=== PATIENT | male | born 1945 | race Caucasian/White ===

== ENCOUNTER 2017-08-13 05:32 | Observation (INO) | payer MEDICARE ==
[2017-08-11 12:32] LABS: BASOPHILS % 0.4 % (0.0-1.0); EOSINOPHILS # (AUTO) 0.2 (0.0-0.4); EOSINOPHILS % 2.1 % (0.0-6.0); HEMATOCRIT 46.8 % (38.2-49.6); HEMOGLOBIN 15.7 g/dL (14.0-18.0); LYMPHOCYTES % 12.1 % (18.0-39.1); MEAN CORPUSCULAR HEMOGLOBIN 29.3 pg (28-32); MEAN CORPUSCULAR HGB CONC 33.5 g/dL (31-35); MEAN CORPUSCULAR VOLUME 87.3 fL (81-99); MONOCYTES # (AUTO) 0.4 (0.2-0.8); MONOCYTES % 5.5 % (4.4-11.3); NEUTROPHILS # (AUTO) 6.3 (2.1-6.9); NEUTROPHILS % 79.6 % (38.7-80.0); PLATELET COUNT 185 x10e3/uL (140-360); RED BLOOD COUNT 5.36 x10e6/uL (4.3-5.7); RED CELL DISTRIBUTION WIDTH 13.6 % (11.7-14.4)
[2017-08-11 12:44] LABS: INR 1.06; PARTIAL THROMBOPLASTIN TIME 27.4 seconds (23.8-35.5)
[2017-08-11 12:50] LABS: ANION GAP 12.3 mmol/L (8-16); BLOOD UREA NITROGEN 20 mg/dL (7-26); BUN/CREATININE RATIO 20 (6-25); CALCIUM 9.4 mg/dL (8.4-10.2); CARBON DIOXIDE 28 mmol/L (22-29); CHLORIDE 102 mmol/L (98-107); CREATININE, SERUM 0.98 mg/dL (0.72-1.25); EST GLOMERULAR FILTRATION RATE > 60 ML/MIN (60-); GLUCOSE 124 mg/dL (74-118); POTASSIUM 4.3 mmol/L (3.5-5.1); SODIUM 138 mmol/L (136-145)
--- NOTE | 2017-08-11 15:13 | Diagnostic Imaging Report ---
PROCEDURE: X-RAY CHEST, TWO VIEWS COMPARISON: None. INDICATIONS: PRE-OPERATIVE CHEST X-RAY FOR LUMBAR SPINE SURGERY. FINDINGS: LUNGS: No consolidations or edema. PLEURA: No effusions or pneumothorax. HEART \T\ MEDIASTINUM: The heart is within normal size-limits. BONES \T\ SOFT TISSUES: No acute findings. Surgical clips project over the upper abdomen compatible with prior cholecystectomy. Degenerative disc changes of the thoracic spine. CONCLUSION: No acute thoracic abnormality. Dictated by: Humberto Mcintyre M.D. on 08/11/2017 at 13:59 Electronically approved by: Humberto Mcintyre M.D. on 08/11/2017 at 13:59
[~2017-08-13] VITALS: Ht 182.9 cm; Wt 127.0 kg
[~2017-08-13 05:32] MED LIST: ASPIR 8181 MG PO; B COMPLEX1 EACH PO; CELEBREX100 MG PO; COQ-10 PO; FOCUS FACTOR PO; KLOR-CON M2020 MEQ PO; L-ARGININE1000 MG PO; LASIX20 MG PO; LISINOPRIL10 MG PO; MEGA MULTIVIT1 EAC1 PO; OMEGA-3 PO; PANTOPRAZOLE SO40 MG PO; PENTOXIFYLLINE400 MG PO; PRAVASTATIN SOD20 MG PO; PROSTA-METTO PO; RESVERATROL PO; TURMERIC PO; TYLENOL325 MG PO; ULTRAM 50MG50 MG PO; VITAMIN D31000 UNI1 PO; VITAMIN E400 UNI1 PO
[2017-08-13] MEDS ORDERED: THROMBIN FOR SOLN 5,000 UNIT VIAL ONE (06:47)
[2017-08-13] MEDS ORDERED: BUPIVACAINE 0.5%/EPI 30 ML SDV INJ ONE (06:47)
[2017-08-13] MEDS ORDERED: GELATIN SPONGE 12-7MM ONE ×2 (06:48→07:59)
[2017-08-13] MEDS ORDERED: BACITRACIN 50,000 UNIT VIAL ONE (06:48)
[2017-08-13] MEDS ORDERED: LIDOCAINE HCL (LTA) 4 ML SOLN ONE (07:05)
[2017-08-13] MEDS ORDERED: ACETAMINOPHEN 1000 MG/100 ML 100 ML IV ONE (07:05)
[2017-08-13] MEDS ORDERED: CEFAZOLIN SOD 2 GM/D5W 50ML 50 ML IV ONE (07:36)
[2017-08-13] MEDS: LACTATED RINGER'S 1,000 ML IV SCH ×2 (09:50→18:10)
[2017-08-13] MEDS ORDERED: HYDROMORPHONE 2MG/ML INJ IV PRN (10:00)
[2017-08-13] MEDS ORDERED: PROMETHAZINE HCL (IM) 25 MG/ML VIAL IM PRN (10:00)
[2017-08-13] MEDS ORDERED: CARISOPRODOL 350 MG TAB PO PRN (10:00)
[2017-08-13] MEDS ORDERED: ONDANSETRON HCL INJ 2 MG/ML VIAL IV PRN (10:00)
[2017-08-13] MEDS ORDERED: ACETAMINOPHEN 325 MG TAB PO PRN (10:00)
[2017-08-13] MEDS ORDERED: MORPHINE SULFATE 5 MG/ML VIAL IM PRN (10:00)
[2017-08-13] MEDS ORDERED: CEPACOL SORE THROAT LOZENGES PO PRN (10:00)
[2017-08-13] MEDS ORDERED: OXYCODONE/ACETAMINOPHEN 5-325 1 EACH TABLET PO PRN (10:00)
[2017-08-13] MEDS ORDERED: MAGNESIUM/ALUMINUM/SIMETHICONE 30 ML UDC PO PRN (10:00)
[2017-08-13 10:30] VITALS: BP 135/68
--- NOTE | 2017-08-13 10:37 | Operative Report ---
DATE OF PROCEDURE: August 13, 2017 PREOPERATIVE DIAGNOSIS: Severe L3-L4 spinal stenosis above the level of previous L4 to S1 fusion, M48.062. POSTOPERATIVE DIAGNOSIS: Severe L3-L4 spinal stenosis above the level of previous L4 to S1 fusion, M48.062. PROCEDURES 1. L3 bilateral decompressive laminectomy and L3-L4 bilateral medial facetectomy, 28055. 2. L4 bilateral residual laminectomy, 76110. ANESTHESIA: General. INDICATIONS: The patient is a man who has previously undergone L4-L5 and L5-S1 fusion in the distant past. He now presents with severe L3-L4 spinal stenosis above the level of his previous fusion. He was taken to the operating room for decompressive laminectomy without fusion. PROCEDURE: After induction of general anesthesia, the patient was placed on the operating table in the prone position over a Jean-Pierre frame. Lumbar region was prepped and draped in a sterile fashion. A preoperative x-ray was obtained. A midline incision was created overlying his previous incision scar. The subcutaneous scar tissue and fat was divided. The lumbar fascia was divided, and dissection was carried out to expose the residual L4 and L3 lamina in this morbidly obese man. The deepest speculum retractor was deployed. An x-ray confirmed correct localization. The operating microscope was brought in. The spinous process of L3 was resected. The high-speed drill equipped with a gerald bur was used to drill the inferior half of the lamina of L3 and the residual lamina of L4, and the medial aspect of the L3-4 facet joints bilaterally. The markedly hypertrophic ligamentum flavum was resected, and the dural sac and the L4 traversing nerve roots were fully exposed and decompressed. Meticulous hemostasis was secured. The dura was covered with a layer of Gelfoam. The wound was closed in multiple layers with 0 and 2-0 Vicryl sutures. The skin was closed with anish. A dressing was applied. The patient was awakened, extubated and taken to the postanesthesia care unit in stable condition. No intraoperative complications were encountered. Estimated blood loss was 10 mL. Job#: [id number] [place]
[2017-08-13] MEDS ORDERED: HYDROMORPHONE 1MG/1ML INJ IV PRN (11:30)
[2017-08-13 11:40] VITALS: BP 135/68
[2017-08-13] MEDS ORDERED: LIDOCAINE HCL 2% LOCAL INJ 5 ML SDV VIAL INJ ONE (14:39)
[2017-08-13] MEDS ORDERED: EPHEDRINE SULFATE INJ 50 MG/10 ML SYR ONE (14:39)
[2017-08-13] MEDS ORDERED: NEOSTIGMINE 5 MG/5ML SYR ONE (14:39)
[2017-08-13] MEDS ORDERED: PROPOFOL IV EMULSION 10 MG/ML 20 ML VIAL ONE (14:39)
[2017-08-13] MEDS ORDERED: ONDANSETRON HCL INJ 2 MG/ML VIAL ONE (14:39)
[2017-08-13] MEDS ORDERED: DESFLURANE 240 ML BTL INH ONE (14:39)
[2017-08-13] MEDS ORDERED: ROCURONIUM BROMIDE 10 MG/ML 5ML VIAL ONE (14:39)
[2017-08-13] MEDS ORDERED: ACETAMINOPHEN 1000 MG/100 ML IV ONE (14:39)
[2017-08-13] MEDS ORDERED: GLYCOPYRROLATE INJ 1MG/ 5 ML SYR ONE (14:39)
[2017-08-13] MEDS ORDERED: DEXAMETHASONE SOD PHOS INJ 4 MG/ML VIAL ONE (14:39)
[2017-08-13] MEDS: CEFAZOLIN SOD 1 GM/D5W 50ML 50 ML IV SCH ×2 (14:59→21:55)
[2017-08-13 15:20] VITALS: BP 134/64
[2017-08-13 16:00] VITALS: BP 135/68
[2017-08-13] MEDS ORDERED: MIDAZOLAM HCL 2 MG/2 ML VIAL ONE (18:44)
[2017-08-13] MEDS ORDERED: FENTANYL CITRATE/PF 100MCG/2 ML INJ ONE (18:44)
[2017-08-13] MEDS: PENTOXIFYLLINE 400 MG TAB CR PO SCH (19:40)
[2017-08-13] MEDS: TRAMADOL HCL 50 MG TAB PO SCH (19:40)
[2017-08-13] MEDS: CELECOXIB 200 MG CAP PO SCH (19:40)
[2017-08-13 20:00] VITALS: BP 133/74
[2017-08-13 21:00] VITALS: BP 133/74
[2017-08-13] MEDS ORDERED: ZOLPIDEM TARTRATE 5 MG TAB PO PRN (21:00)
[2017-08-13] MEDS ORDERED: PRAVASTATIN 20 MG TAB PO SCH (21:00)
[2017-08-14 04:00] VITALS: BP 123/77
[2017-08-14] MEDS: CEFAZOLIN SOD 1 GM/D5W 50ML 50 ML IV SCH (05:21)
[2017-08-14] MEDS ORDERED: PANTOPRAZOLE SOD 40 MG TABEC PO SCH (07:30)
[2017-08-14 08:00] VITALS: BP 132/64
[2017-08-14 08:23] VITALS: BP 123/77
[2017-08-14] MEDS ORDERED: LISINOPRIL 10 MG TAB PO SCH (09:00)
[2017-08-14] MEDS ORDERED: VITAMIN E 400 UNIT CAP PO SCH (09:00)
[2017-08-14] MEDS: TRAMADOL HCL 50 MG TAB PO SCH (09:00)
[2017-08-14] MEDS ORDERED: FUROSEMIDE 20 MG TAB PO SCH (09:00)
[2017-08-14] MEDS ORDERED: POTASSIUM CHLORIDE 20 MEQ TAB CR PO SCH (09:00)
[2017-08-14] MEDS ORDERED: CHOLECALCIFEROL 1,000 UNIT TAB PO SCH (09:00)
[2017-08-14] MEDS: CELECOXIB 200 MG CAP PO SCH (09:06)
[2017-08-14] MEDS: PENTOXIFYLLINE 400 MG TAB CR PO SCH (09:07)
== END 2017-08-14 11:15 | disposition home or self-care (01) ==
LOC: OR 05:32 → PACU V 09:51 → IMCU 11:01
PROVIDERS: ADMIT Neurological Surgery; ATTEND Neurological Surgery
DX: M48.062 Spinal stenosis, lumbar region with neurogenic claudication (principal); Z98.1 Arthrodesis status; E11.9 Type 2 diabetes mellitus without complications; G47.30 Sleep apnea, unspecified; E66.01 Morbid (severe) obesity due to excess calories; Z68.39 Body mass index [BMI] 39.0-39.9, adult; I10 Essential (primary) hypertension; M19.90 Unspecified osteoarthritis, unspecified site; Z01.810 Encounter for preprocedural cardiovascular examination; Z01.812 Encounter for preprocedural laboratory examination; Z01.818 Encounter for other preprocedural examination; Z87.891 Personal history of nicotine dependence; Z79.82 Long term (current) use of aspirin; Z79.02 Long term (current) use of antithrombotics/antiplatelets; Z88.1 Allergy status to other antibiotic agents; Z88.5 Allergy status to narcotic agent; Z88.2 Allergy status to sulfonamides
CPT/HCPCS: 36415 ×2; 63047; 63048; 71046; 72020; 80048; 82948; 85025; 85610; 85730; 86850; 86900; 88304; 88311; 93005; G0378 ×2; J1100; J1170; J2001; J2250; J2405; J3490; J7120; S0164 ×2; J2270

== ENCOUNTER 2017-09-28 17:04 | Emergency (ER) | payer MEDICARE ==
[~2017-09-28] VITALS: Ht 365.8 cm; Wt 127.0 kg
[2017-09-28] MEDS ORDERED: ONDANSETRON HCL INJ 2 MG/ML VIAL IV ONE (18:03)
[2017-09-28] MEDS ORDERED: SODIUM CHLORIDE 0.9% 1000ML 1,000 ML IV STA (18:03)
[2017-09-28] MEDS ORDERED: MORPHINE SULFATE 2 MG/ML SYR IV ONE (18:15)
[2017-09-28 18:58] LABS: BASOPHILS % 0.4 % (0.0-1.0); EOSINOPHILS # (AUTO) 0.3 (0.0-0.4); EOSINOPHILS % 3.5 % (0.0-6.0); HEMATOCRIT 48.7 % (38.2-49.6); HEMOGLOBIN 15.8 g/dL (14.0-18.0); LYMPHOCYTES # (AUTO) 1.4 (1.0-3.2); LYMPHOCYTES % 17.5 % (18.0-39.1); MEAN CORPUSCULAR HEMOGLOBIN 28.5 pg (28-32); MEAN CORPUSCULAR HGB CONC 32.4 g/dL (31-35); MEAN CORPUSCULAR VOLUME 87.7 fL (81-99); MONOCYTES # (AUTO) 0.6 (0.2-0.8); MONOCYTES % 7.8 % (4.4-11.3); NEUTROPHILS # (AUTO) 5.5 (2.1-6.9); NEUTROPHILS % 70.5 % (38.7-80.0); PLATELET COUNT 231 x10e3/uL (140-360); RED BLOOD COUNT 5.55 x10e6/uL (4.3-5.7); RED CELL DISTRIBUTION WIDTH 13.7 % (11.7-14.4)
[2017-09-28 19:09] LABS: CLARITY,URINE SL CLOUDY (CLEAR); COLOR,URINE YELLOW (YELLOW); LEUKOCYTE ESTERASE ,URINE NEGATIVE (NEGATIVE); NITRITE,URINE NEGATIVE (NEGATIVE); PROTEIN,URINE DIPSTICK NEGATIVE (NEGATIVE)
[2017-09-28 19:10] LABS: BILIRUBIN,URINE NEGATIVE (NEGATIVE); KETONES,URINE NEGATIVE (NEGATIVE); URINE UROBILINOGEN 0.2 mg/dL (0.2 - 1)
[2017-09-28 19:13] LABS: ALANINE AMINOTRANSFERASE 30 IU/L (0-55); ALBUMIN 3.8 g/dL (3.5-5.0); ALKALINE PHOSPHATASE 81 IU/L (40-150); ANION GAP 16.8 mmol/L (8-16); BLOOD UREA NITROGEN 13 mg/dL (7-26); BUN/CREATININE RATIO 13 (6-25); CALCIUM 9.3 mg/dL (8.4-10.2); CARBON DIOXIDE 26 mmol/L (22-29); CHLORIDE 101 mmol/L (98-107); CREATININE, SERUM 0.98 mg/dL (0.72-1.25); EST GLOMERULAR FILTRATION RATE > 60 ML/MIN (60-); GLUCOSE 94 mg/dL (74-118); POTASSIUM 3.8 mmol/L (3.5-5.1); SODIUM 140 mmol/L (136-145)
[2017-09-28 19:18] LABS: BACTERIA,URINE FEW /HPF; EPITHELIAL CELLS,URINE MODERATE /LPF; WBC,URINE (MAN) 0-5 /HPF (0-5)
--- NOTE | 2017-09-28 23:45 | Diagnostic Imaging Report ---
EXAM: CT ABDOMEN/PELVIS W DATE: 09/28/2017 7:00 PM INDICATION: Right flank pain COMPARISON: None TECHNIQUE: The abdomen and pelvis were scanned using a multidetector helical scanner. Coronal and sagittal reformations were obtained. IV Contrast: 100 ml Isovue 300/370 FINDINGS: LOWER THORAX: No consolidations LIVER: Low-attenuation of the liver with respect to the spleen can be seen with hepatic steatosis. No masses. GALLBLADDER/BILIARY: Cholecystectomy. No biliary ductal dilation SPLEEN: Unremarkable PANCREAS: Unremarkable ADRENALS: No nodules KIDNEYS: No suspicious renal masses. Several too small to characterize renal hypodensities. No hydronephrosis. GI TRACT: No wall thickening or evidence of obstruction. Diverticulosis. No evidence of appendicitis or diverticulitis. VESSELS: Unremarkable PERITONEUM/RETROPERITONEUM: No free air or fluid LYMPH NODES: No lymphadenopathy REPRODUCTIVE ORGANS/BLADDER: Mild bladder wall thickening given degree of distention, most notable anteriorly with some tethering right inferior/anterior aspect at the inguinal hernia origin. Borderline prostatomegaly. SOFT TISSUES: Partially imaged large fat-containing right inguinal hernia. Right gluteal intramuscular lipoma, incidental. Postsurgical changes along the anterior abdominal wall. Tiny fat-containing umbilical hernia. BONES: Postsurgical changes status post L3-S1 posterior fusion and decompression; focal fluid posteriorly is noted measuring 3.8 x 4.6 x 8 cm. Multilevel degenerative changes. IMPRESSION: 1. Diffuse anterior bladder wall thickening, nonspecific, but can be seen with cystitis. Correlate with urinalysis and urine cytology/cystoscopy, as indicated. 2. Large fat containing right inguinal hernia. A portion of the right anterior bladder is tethered slightly at the hernia origin. 3. Fluid collection posterior to the lumbar spine, likely postsurgical such as chronic seroma in the absence of signs/symptoms of infection. Signed by: Dr Nette Rodriguez MD on 09/28/2017 11:42 PM
[2017-09-29] MEDS ORDERED: IOPAMIDOL 370 MG/ML 200 ML INFUS..BTL INJ ONE (01:14)
[2017-09-29] MEDS ORDERED: SODIUM CHLORIDE 0.9% 50ML 50 ML ONE (01:14)
--- OUTSIDE RECORDS SUMMARY | 2017-11-12 03:17 | XMS REPORT ---
Author Author Astrid Araiza [facility] e[employer] Address Unknown Phone Unavailable Care Team Providers Care Grounds Worker Name Role Phone Astrid Araiza Unavailable Allergies, Adverse Reactions, Alerts Substance Reaction Event Type Vicodin Lowers blood presures Drug Allergy Invanz Tongue Swelling Drug Allergy Slufur Upset GI Non Drug Allergy Problems Problem Type Condition Code Onset Dates Condition Status Assessment Screening for osteoporosis Z13.820 Active Problem Knee osteoarthritis M17.9 Active Problem Diabetic neuropathy, painful E11.40 Active Problem Screening for osteoporosis Z13.820 Active Assessment Knee osteoarthritis M17.9 Active Assessment Diabetic neuropathy, painful E11.40 Active Problem Polyarthritis M13.0 Active Assessment Polyarthritis M13.0 Active Medications Medication Code System Code Instructions Start Date End Date Status Dosage Tramadol HCl ND 05370436306 50 MG Orally every 6 hrs Active 1 tablet as needed Vitamin D3 ND 91152946905 1000 UNIT Orally Once a day Active 1 tablet Pentoxifylline CR ND 19303492837 400 MG Orally Twice a day Active 1 tablet with meals Tennyson-3 ND 74830484935 1000 MG Orally Once a day Active 1 capsule Celecoxib 200 mg q 12 prn #60 NDC 0 200 mg orally every 12 hours as needed for pain Feb 27, 2017 August 27, 2017 Inactive one tablet Q-10 Co-Enzyme NDC 0 30 MG Orally Once a day Active 1 capsule with a meal Omeprazole [facility] 34881958268 40 Active TAKE ONE CAPSULE BY MOUTH ONCE DAILY Klor-Con M20 ND 90334095660 20 MEQ Orally Once a day Active 1 tablet with food Omeprazole ND 03383492690 40 MG Orally Once a day August 05, 2016 Active 1 capsule Lasix ND 37903968255 20 MG Orally Once a day Active 1 tablet Multivitamin Adults 50+ ND 78354549728 - Orally Active as directed Amitriptyline HCl ND 44296985322 25 MG Orally Once a day August 27, 2017 Active 1 tablet Pravastatin Sodium ND 19987774759 20 MG Orally Once a day Active 1 tablet Vital Signs Date/Time: August 27, 2017 BMI 39.61 Index Weight 284 lbs Height 71 in Temperature 98.5 F Cardiac Monitoring Heart Rate 76 /min Blood Pressure Diastolic 70 mm Hg Blood Pressure Systolic 138 mm Hg Results No Known Results Summary Purpose e[employer] Submission
--- OUTSIDE RECORDS SUMMARY | 2017-11-12 03:17 | XMS REPORT ---
Author Author Astrid Araiza Organization [employer] Address Unknown Phone Unavailable Care Team Providers Care Crew Member Name Role Phone Astrid Araiza CP Unavailable Allergies No Known Allergies Problems Problem Type Condition Code Onset Dates Condition Status Problem Knee osteoarthritis M17.9 Active Problem Diabetic neuropathy, painful E11.40 Active Problem Screening for osteoporosis Z13.820 Active Problem Polyarthritis M13.0 Active Assessment Diabetic neuropathy, painful E11.40 Active Medications Medication Code System Code Instructions Start Date End Date Status Dosage Amitriptyline HCl [facility] 61360338534 25 MG Orally Once a day August 27, 2017 Active 1 tablet Results No Known Results Summary Purpose eClinicalWorks Submission
--- OUTSIDE RECORDS SUMMARY | 2017-11-12 03:18 | XMS REPORT | Continuity of Care Document ---
Author Author [facility] Organization [facility] Address [address] [place] [address] Phone Unavailable Care Team Providers Care Sustainability Manager Name Role Phone PETROS ELAM (NON STAFF) PCP Advance Directives Directive Response Recorded Date/Time Does the patient have an advance directive? No 08/13/17 10:30am If yes, is advance directive on file with [facility]? No 08/13/17 10:30am If not on file with [facility] will patient provide a copy? No 08/13/17 10:30am Do you have a Directive to Physician? No 08/11/17 11:38am Do you have a Medical Power of Campus Interviews Intern? No 08/11/17 11:38am Do you have an out of hospital Do Not Resuscitate Order? No 08/11/17 11:38am Do you have any special needs we should be aware of? No 08/11/17 11:38am Do you have a support person here with you today? Yes 08/11/17 11:38am Did patient receive Notice of Privacy Practices? Yes 08/11/17 11:38am Did patient receive patient rights and responsibilities? Yes 08/11/17 11:38am Problems No problem information available. Medications Current Home Medications Medication Dose Units Route Directions Days Qty Instructions Start Date Acetaminophen (Tylenol*) 325 Mg Tablet 650 Mg Oral As Needed Arginine Hcl (L-Arginine) 1,000 Mg Tablet 1,000 Mg Oral Daily Aspirin (Aspir 81) 81 Mg Tablet.dr 81 Mg Oral Daily Celecoxib (Celebrex*) 100 Mg Capsule 200 Mg Oral Twice A Day 30 Cap Cholecalciferol (Vitamin D3) (Vitamin D3) 1,000 Unit Tablet 1,000 Units Oral Daily Coq-10 Oral Daily Focus Factor Oral Twice A Day Furosemide (Lasix) 20 Mg Tablet 20 Mg Oral Daily 30 Tab Lisinopril 10 Mg Tablet 10 Mg Oral Daily 30 Tab Mv-Mn/Fa/Lycopene/Lut/Hb#178 (Gamaliel Multivit For Men Caplet) 1 Each Tablet Oral Daily [place]-3 Oral Daily Pantoprazole Sodium (Protonix) 40 Mg Tablet.dr 40 Mg Oral Daily Pentoxifylline 400 Mg Tablet.er 400 Mg Oral Twice A Day 30 Tab Potassium Chloride (Klor-Con M20) 20 Meq Tabcr 20 Meq Oral Daily Pravastatin Sodium 20 Mg Tablet 20 Mg Oral Daily Prosta-Metto Oral Daily Resveratrol Oral Daily Tramadol Hcl (Ultram 50MG*) 50 Mg Tab 50 Mg Oral Twice A Day Turmeric 500 Mg Oral Daily Vitamin B Complex (B Complex) 1 Each Tablet Oral Daily Vitamin E Mixed (Vitamin E) 400 Unit Capsule 400 Units Oral Daily Social History No social history information available. Hospital Discharge Instructions No hospital discharge instruction information available. Plan of Care Discharge Date 08/14/17 11:15am Disposition HOME, SELF-CARE Instructions/Education Provided Infection Control Post Operative Pain Prescriptions See Medication Section Additional Instructions/Education see attached paperwork Functional Status Query Response Date Recorded Assistive Devices None August 13, 2017 10:30am Ambulation Ability Independent August 13, 2017 10:30am Toileting Ability Independent August 14, 2017 9:30am Allergies, Adverse Reactions, Alerts Allergen Type Severity Reaction Status Last Updated Sulfa (Sulfonamide Antibiotics) Allergy Unknown NAUSEA/BAD TASTE IN MOUTH Active 08/13/17 Hydrocodone Allergy Unknown LOWERS BLOOD PRESSURE Active 08/11/17 Ertapenem Allergy Unknown TONGUE SWELLED Active 08/11/17 Immunizations No immunization information available. Vital Signs Acute Vital Signs Vital Response Date/Time Temperature (Fahrenheit) 97.1 degrees F (97.6 - 99.5) 08/14/2017 8:23am Pulse Pulse Rate (adult) 78 bpm (60 - 90) 08/14/2017 8:23am Respiratory Rate 18 bpm (12 - 24) 08/14/2017 8:23am Blood Pressure 123/77 mm Hg 08/14/2017 8:23am Height 6 ft 0 in 08/13/2017 10:30am Weight 280 lb 08/13/2017 10:30am Body Mass Index 38.0 kg/m^2 08/13/2017 11:42am Results Laboratory Results Test Name Result Units Flags Reference Collection Date/Time Result Date/ Time Comments White Blood Count 7.93 x10e3/uL 4.8-10.8 08/11/2017 12:28pm 08/11/2017 12:33pm Red Blood Count 5.36 x10e6/uL 4.3-5.7 08/11/2017 12:28pm 08/11/2017 12: 33pm Hemoglobin 15.7 g/dL 14.0-18.0 08/11/2017 12:28pm 08/11/2017 12:33pm Hematocrit 46.8 % 38.2-49.6 08/11/2017 12:28pm 08/11/2017 12:33pm Mean Corpuscular Volume 87.3 fL 81-99 08/11/2017 12:28pm 08/11/2017 12: 33pm Mean Corpuscular Hemoglobin 29.3 pg 28-32 08/11/2017 12:28pm 2017 12:33pm Mean Corpuscular Hemoglobin Concent 33.5 g/dL 31-35 08/11/2017 12:28pm 08/11/2017 12:33pm Red Cell Distribution Width 13.6 % 11.7-14.4 08/11/2017 12:28pm 2017 12:33pm Platelet Count 185 x10e3/uL 140-360 08/11/2017 12:28pm 08/11/2017 12: 33pm Neutrophils (%) (Auto) 79.6 % 38.7-80.0 08/11/2017 12:28pm 08/11/2017 12:33pm Lymphocytes (%) (Auto) 12.1 % L 18.0-39.1 08/11/2017 12:28pm 08/11/2017 12:33pm Monocytes (%) (Auto) 5.5 % 4.4-11.3 08/11/2017 12:28pm 08/11/2017 12: 33pm Eosinophils (%) (Auto) 2.1 % 0.0-6.0 08/11/2017 12:28pm 08/11/2017 12: 33pm Basophils (%) (Auto) 0.4 % 0.0-1.0 08/11/2017 12:28pm 08/11/2017 12: 33pm IM GRANULOCYTES % 0.3 % 0.0-1.0 08/11/2017 12:28pm 08/11/2017 12:33pm Neutrophils # (Auto) 6.3 2.1-6.9 08/11/2017 12:28pm 08/11/2017 12: 33pm Lymphocytes # (Auto) 1.0 1.0-3.2 08/11/2017 12:28pm 08/11/2017 12: 33pm Monocytes # (Auto) 0.4 0.2-0.8 08/11/2017 12:28pm 08/11/2017 12:33pm Eosinophils # (Auto) 0.2 0.0-0.4 08/11/2017 12:28pm 08/11/2017 12: 33pm Basophils # (Auto) 0.0 0.0-0.1 08/11/2017 12:28pm 08/11/2017 12:33pm Absolute Immature Granulocyte (auto 0.02 x10e3/uL 0-0.1 08/11/2017 12: 28pm 08/11/2017 12:33pm Prothrombin Time 13.0 seconds 11.9-14.5 08/11/2017 12:28pm 08/11/2017 12:45pm Prothromb Time International Ratio 1.06 08/11/2017 12:28pm 2017 12:45pm Oral Anticoagulant Therapy INR Values: 1. Low Intensity Therapy 1.5 - 2.0 2. Moderate Intensity Therapy 2.0 - 3.0 3. High Intensity Therapy(1) 2.5 - 3.5 4. High Intensity Therapy(2) 3.0 - 4.0 5. Panic Value INR > 5.0 Activated Partial Thromboplast Time 27.4 seconds 23.8-35.5 08/11/2017 12 :28pm 08/11/2017 12:45pm Sodium Level 138 mmol/L 136-145 08/11/2017 12:28pm 08/11/2017 12:52pm Potassium Level 4.3 mmol/L 3.5-5.1 08/11/2017 12:28pm 08/11/2017 12: 52pm Chloride Level 102 mmol/L 98-107 08/11/2017 12:28pm 08/11/2017 12:52pm Carbon Dioxide Level 28 mmol/L 22-29 08/11/2017 12:28pm 08/11/2017 12: 52pm Anion Gap 12.3 mmol/L 8-16 08/11/2017 12:28pm 08/11/2017 12:52pm Blood Urea Nitrogen 20 mg/dL 7-08/11/2017 12:28pm 08/11/2017 12: 52pm Creatinine 0.98 mg/dL 0.72-1.25 08/11/2017 12:28pm 08/11/2017 12:52pm BUN/Creatinine Ratio 20 6-25 08/11/2017 12:28pm 08/11/2017 12:52pm Estimat Glomerular Filtration Rate > 60 ML/MIN 60- 08/11/2017 12:28pm 08/11/2017 12:53pm Ranges were taken from the National Kidney Disease Education Program and the National Kidney Foundation literature. Reference ranges: 60 or greater: Normal 16-59 (for 3 consecutive months): Chronic kidney disease 15 or less: Kidney failure Glucose Level 124 mg/dL H 74-118 08/11/2017 12:28pm 08/11/2017 12:53pm Calcium Level 9.4 mg/dL 8.4-10.2 08/11/2017 12:28pm 08/11/2017 12:53pm Bedside Glucose 191 mg/dL H 70-120 08/13/2017 3:25pm 08/13/2017 3:41pm Meter ID: [id number] Procedures Procedure Status Date Provider(s) Bilateral laminectomy of lumbar spine Completed 08/13/17 MILES NEAL MD X-ray of chest, two views Active 08/11/17 MILES NEAL MD Encounters Encounter Location Arrival/Admit Date Discharge/Depart Date Attending Provider Discharged Inpatient (obs) [facility] [place] [place] 08/13/17 9:51am 07/27 11:15am MILES NEAL MD
== END 2017-09-29 00:26 | disposition home or self-care (01) ==
LOC: ER 17:04
DX: R10.11 Right upper quadrant pain (principal); R10.31 Right lower quadrant pain; K40.91 Unilateral inguinal hernia, without obstruction or gangrene, recurrent; I10 Essential (primary) hypertension
CPT/HCPCS: 36415; 74177; 80053; 81001; 85025; 99284; J7030; Q9967; J2270; J2405

== ENCOUNTER 2018-12-31 12:25 | Emergency (ER) | payer MEDICARE ==
[~2018-12-31] VITALS: Ht 365.8 cm; Wt 127.0 kg
[2018-12-31 13:47] LABS: BASOPHILS % 0.2 % (0.0-1.0); EOSINOPHILS % 0.1 % (0.0-6.0); HEMATOCRIT 43.7 % (38.2-49.6); HEMOGLOBIN 14.1 g/dL (14.0-18.0); LYMPHOCYTES # (AUTO) 1.4 (1.0-3.2); LYMPHOCYTES % 8.7 % (18.0-39.1); MEAN CORPUSCULAR HEMOGLOBIN 28.2 pg (28-32); MEAN CORPUSCULAR HGB CONC 32.3 g/dL (31-35); MEAN CORPUSCULAR VOLUME 87.4 fL (81-99); MONOCYTES # (AUTO) 1.2 (0.2-0.8); MONOCYTES % 7.7 % (4.4-11.3); NEUTROPHILS # (AUTO) 13.2 (2.1-6.9); NEUTROPHILS % 82.9 % (38.7-80.0); PLATELET COUNT 183 x10e3/uL (140-360); RED CELL DISTRIBUTION WIDTH 14.1 % (11.7-14.4)
[2018-12-31 14:05] LABS: ALANINE AMINOTRANSFERASE 18 IU/L (0-55); ALBUMIN 3.8 g/dL (3.5-5.0); ALBUMIN/GLOBULIN RATIO 1.1 (0.8-2.0); ALKALINE PHOSPHATASE 47 IU/L (40-150); ANION GAP 12.4 mmol/L (8-16); BLOOD UREA NITROGEN 17 mg/dL (7-26); BUN/CREATININE RATIO 16 (6-25); CALCIUM 9.5 mg/dL (8.4-10.2); CARBON DIOXIDE 28 mmol/L (22-29); CHLORIDE 101 mmol/L (98-107); CREATININE, SERUM 1.09 mg/dL (0.72-1.25); EST GLOMERULAR FILTRATION RATE > 60 ML/MIN (60-); GLUCOSE 100 mg/dL (74-118); POTASSIUM 3.4 mmol/L (3.5-5.1); SODIUM 138 mmol/L (136-145)
[2018-12-31 14:31] LABS: BILIRUBIN,URINE NEGATIVE (NEGATIVE); CLARITY,URINE SL CLOUDY (CLEAR); COLOR,URINE YELLOW (YELLOW); KETONES,URINE NEGATIVE (NEGATIVE); LEUKOCYTE ESTERASE ,URINE MODERATE (NEGATIVE); NITRITE,URINE POSITIVE (NEGATIVE); PROTEIN,URINE DIPSTICK NEGATIVE (NEGATIVE); URINE UROBILINOGEN 0.2 mg/dL (0.2 - 1)
[2018-12-31] MEDS ORDERED: DIATRIZOATE MEGL/DIATRIZOA SOD 30 ML BTL PO ONE (14:56)
[2018-12-31 14:59] LABS: BACTERIA,URINE MANY /HPF
--- NOTE | 2018-12-31 17:07 | Diagnostic Imaging Report ---
EXAM: CT Abdomen and Pelvis WITH intravenous contrast INDICATION: Right lower quadrant abdominal pain COMPARISON: Abdomen and pelvis CT of 09/28/2017 TECHNIQUE: Abdomen and pelvis were scanned utilizing a multidetector helical scanner from the lung base to the pubic symphysis after administration of IV contrast. Coronal and sagittal reformations were obtained. Routine protocol was performed. Scan was performed during portal venous phase. IV CONTRAST: 100mL of Isovue 370 ORAL CONTRAST: Gastrografin RADIATION DOSE: Total DLP: 947.6 mGy*cm Dose modulation, iterative reconstruction, and/or weight based adjustment of the mA/kV was utilized to reduce the radiation dose to as low as reasonably achievable. FINDINGS: LOWER THORAX: Normal. HEPATOBILIARY: No focal liver lesion. No biliary ductal dilation. Status post cholecystectomy. SPLEEN: No splenomegaly. PANCREAS: No focal masses or ductal dilatation. ADRENALS: No adrenal nodules. KIDNEYS/URETERS: No hydronephrosis, stones, or solid mass lesions. PELVIC ORGANS/BLADDER: Prostatomegaly to 5.5 cm. PERITONEUM / RETROPERITONEUM: No free air or fluid. LYMPH NODES: No lymphadenopathy. VESSELS: Minimal atherosclerotic calcifications of the nonaneurysmal abdominal aorta and major branches. GI TRACT: No abnormal bowel thickening. No bowel obstruction. BONES AND SOFT TISSUES: Postoperative findings of posterior decompression and fusion at L4-S1. No acute osseous injury. No suspicious lytic or blastic lesions. Multilevel degenerative changes of the visualized spine. Small bilateral inguinal hernias right greater than left containing fat. IMPRESSION: No acute findings in the abdomen or pelvis. Signed by: Arpil Perry MD on 12/31/2018 5:04 PM
[2018-12-31] MEDS ORDERED: CEFTRIAXONE SOD 1 GM/NS 50 ML 50 ML IV ONE (17:15)
[2018-12-31 17:43] VITALS: BP 141/59
[2018-12-31] MEDS ORDERED: IOPAMIDOL 370 MG/ML 200 ML INFUS..BTL INJ ONE (19:22)
[2018-12-31] MEDS ORDERED: SODIUM CHLORIDE 0.9% 50ML 50 ML ONE (19:22)
== END 2018-12-31 17:48 | disposition home or self-care (01) ==
LOC: ER 12:25
DX: R10.31 Right lower quadrant pain (principal); N39.0 Urinary tract infection, site not specified
CPT/HCPCS: 36415; 74177; 80053; 81001; 85025; 93005; 99284; J0696; Q9967

== ENCOUNTER → 2019-08-30 | Day surgery (SDC) | payer MEDICARE, OTHER ==
[2019-08-25 15:00] LABS: BASOPHILS % 0.3 % (0.0-1.0); EOSINOPHILS # (AUTO) 0.2 (0.0-0.4); EOSINOPHILS % 2.5 % (0.0-6.0); HEMATOCRIT 42.7 % (38.2-49.6); HEMOGLOBIN 13.3 g/dL (14.0-18.0); LYMPHOCYTES # (AUTO) 1.1 (1.0-3.2); LYMPHOCYTES % 16.1 % (18.0-39.1); MEAN CORPUSCULAR HGB CONC 31.1 g/dL (31-35); MEAN CORPUSCULAR VOLUME 86.8 fL (81-99); MONOCYTES # (AUTO) 0.5 (0.2-0.8); MONOCYTES % 7.7 % (4.4-11.3); NEUTROPHILS # (AUTO) 4.8 (2.1-6.9); NEUTROPHILS % 73.2 % (38.7-80.0); PLATELET COUNT 271 x10e3/uL (140-360); RED BLOOD COUNT 4.92 x10e6/uL (4.3-5.7); RED CELL DISTRIBUTION WIDTH 13.7 % (11.7-14.4)
[2019-08-25 15:17] LABS: ANION GAP 13.2 mmol/L (8-16); BLOOD UREA NITROGEN 17 mg/dL (7-26); BUN/CREATININE RATIO 17 (6-25); CALCIUM 8.9 mg/dL (8.4-10.2); CARBON DIOXIDE 26 mmol/L (22-29); CHLORIDE 106 mmol/L (98-107); CREATININE, SERUM 0.99 mg/dL (0.72-1.25); EST GLOMERULAR FILTRATION RATE > 60 ML/MIN (60-); GLUCOSE 80 mg/dL (74-118); POTASSIUM 4.2 mmol/L (3.5-5.1); SODIUM 141 mmol/L (136-145)
--- NOTE | 2019-08-25 15:37 | Diagnostic Imaging Report ---
EXAM: CHEST 2 VIEWS DATE: 08/25/2019 2:30 PM INDICATION: Preoperative evaluation, inguinal hernia COMPARISON: None FINDINGS: The trachea is midline. The lungs are symmetrically expanded without evidence for large focal consolidation, pneumothorax, or significant pleural effusion. The cardiomediastinal silhouette and pulmonary vasculature are within normal limits. No acute osseous abnormality is identified. The surrounding soft tissues are unremarkable. Cholecystectomy clips noted within the right upper quadrant. IMPRESSION: No acute cardiopulmonary process identified. Signed by: Dr. Suleiman Monson MD on 08/25/2019 3:33 PM
[~2019-08-30] MED LIST changes: +ACETAMINOPHEN 1000 MG/100 ML IV ONE; +BACITRACIN 50,000 UNIT VIAL ONE; +BELBUCA900 MCG PO; +BUPIVACAINE HCL 0.5% INJ 30 ML VIAL INJ ONE; +CEFAZOLIN SOD 1 GM/NS 50ML 100 ML IV ONE; +DEXAMETHASONE SOD PHOS INJ 4 MG/ML VIAL ONE; +ETOMIDATE 2 MG/ML 10 ML INJ IV ONE; +FENTANYL CITRATE/PF 100MCG/2 ML INJ ONE; +GLYCOPYRROLATE INJ 0.2 MG/ML VIAL ONE; +LIDOCAINE HCL 2% LOCAL INJ 5 ML SDV VIAL INJ ONE; +LOSARTAN POTAS100 MG PO; +NEOSTIGMINE 1 MG/ML 10ML VIAL ONE; +ONDANSETRON HCL INJ 2MG/ML 2ML 2 MG/ML VIAL ONE; +PROPOFOL IV EMULSION 10 MG/ML 20 ML VIAL ONE; +ROCURONIUM BROMIDE 10 MG/ML 5ML VIAL IV ONE; +SEVOFLURANE INHAL SOLN 250 ML PEN BTL ONE; +SUCCINYLCHOLINE CHLORIDE 20 MG/ML 10ML VIAL ONE; +TIZANIDINE HCL4 MG PO; +VITAMIN D3250 MCG PO
--- NOTE | 2019-08-30 12:24 | Operative Report ---
DATE OF PROCEDURE: 08/30/2019 SURGEON: Humberto Barnard MD PREOPERATIVE DIAGNOSIS: Bilateral inguinal hernias. POSTOPERATIVE DIAGNOSIS: Bilateral inguinal hernias. PROCEDURES: Repair of bilateral inguinal hernias with mesh. MILL REPRESENTATIVE: None. ANESTHESIA: General. INDICATIONS AND FINDINGS: The patient is a 74-year-old male, presenting with complaints of pain and bulge in the right groin. Exam revealed bilateral inguinal hernias. At Surgery, the patient was found a large indirect right inguinal hernia and indirect left inguinal hernia. TECHNIQUE: After adequate general endotracheal anesthesia, the patient in supine position, and the groin area was were prepped and draped in a sterile fashion with ChloraPrep solution. Transverse incision was made in the right inguinal area, carried down through subcutaneous tissue and Deana's fascia into the external oblique fascia was seen, this was opened in direction of fibers through the external ring. The ilioinguinal nerve was identified and preserved. There was a large herniated mass associated with the spermatic cord. The spermatic cord was dissected free from the herniated mass, and herniated mass was dissected free from surrounding tissues and from the spermatic cord up to the internal ring and was found to be an indirect hernia. Once this was completely free, reduced through the internal ring. There was no evidence of a direct hernia with the internal ring was very dilated. A large Prolene mesh hernia system which had been soaked in antibiotic solution was placed through the internal ring with the underlay patch opened up in the preperitoneal space. The Onlay patch was laid over the floor of the inguinal canal, sutured to the shelving edge of inguinal ligament laterally and conjoint tendon medially, this was done with interrupted sutures of #0 Prolene. Care was taken not to entrap the general femoral or iliohypogastric nerves. Once the mesh was in place, the spermatic cord and ilioinguinal nerve returned to their normal positions. The wound was inspected for hemostasis, which was seen to be adequate. The wound was then infiltrated with 0.5% Marcaine. The external oblique fascia was closed with running suture of 2-0 Vicryl. Care was taken not to entrap the spermatic cord or ilioinguinal nerve. Deana's fascia was closed with running suture of 3-0 Vicryl. Skin was closed with running subcuticular suture of 4-0 Vicryl. Attention was then turned to the left side. A transverse incision made in left inguinal area inguinal area, carried down through subcutaneous tissue and Deana's fascia to the external oblique fascia was seen, this was opened in direction of its fibers through the external ring. The ilioinguinal nerve was identified and preserved. The spermatic cord was dissected free from the floor of the inguinal canal was found to be a direct hernia. The cremasteric fibers were opened. There was no evidence of indirect hernia sac. The floor of the inguinal canal was then opened up through the direct hernia defect and to the preperitoneal space, a large Prolene mesh hernia system which had been soaked in antibiotic solution was placed through the hernia defect with the underlay patch opened up in the preperitoneal space, Onlay patch was laid over the floor of the inguinal canal, the keyhole opening created to allow exit spermatic cord. The Onlay patch was sutured to the shelving edge of inguinal ligament laterally and conjoint tendon medially, this was done with interrupted sutures of #0 Prolene. Care was taken not to entrap the general femoral or iliohypogastric nerves. Once the mesh was in place, the spermatic cord and ilioinguinal nerve were returned to their normal positions. The wound was inspected for hemostasis, which was seen to be adequate. The wound was then infiltrated with 0.5% Marcaine. The external oblique fascia was closed with running suture of 2-0 Vicryl. Care was taken not to entrap the spermatic cord or ilioinguinal nerve. Deana's fascia was closed with running suture of 3-0 Vicryl. Skin was closed with a running subcuticular suture of 4-0 Vicryl. Dermabond and sterile dressing were applied to each wound. The patient tolerated the procedure well. Estimated blood loss was 10 mL. There were no complications. All counts were correct. The patient was taken to the recovery room in satisfactory condition. MD JUAN Tang/KORIN /[id number] cc: Humberto Cadet
[2019-08-30 12:38] VITALS: BP 150/73
== END | disposition home or self-care (01) ==
LOC: OR 06:46
PROVIDERS: ATTEND Surgery
DX: K40.20 Bilateral inguinal hernia, without obstruction or gangrene, not specified as recurrent (principal); G47.33 Obstructive sleep apnea (adult) (pediatric); M54.9 Dorsalgia, unspecified; H91.90 Unspecified hearing loss, unspecified ear; E03.9 Hypothyroidism, unspecified; E11.9 Type 2 diabetes mellitus without complications; K21.9 Gastro-esophageal reflux disease without esophagitis; K76.0 Fatty (change of) liver, not elsewhere classified; I10 Essential (primary) hypertension; E78.5 Hyperlipidemia, unspecified; I83.90 Asymptomatic varicose veins of unspecified lower extremity; N31.9 Neuromuscular dysfunction of bladder, unspecified; I44.0 Atrioventricular block, first degree; Z88.6 Allergy status to analgesic agent; Z88.1 Allergy status to other antibiotic agents; Z88.2 Allergy status to sulfonamides; Z01.810 Encounter for preprocedural cardiovascular examination; Z01.812 Encounter for preprocedural laboratory examination; Z01.818 Encounter for other preprocedural examination; Z11.59 Encounter for screening for other viral diseases; Z79.82 Long term (current) use of aspirin; Z87.891 Personal history of nicotine dependence
CPT/HCPCS: 36415 ×2; 49505; 71046; 80048; 82948; 85025; 93005; C1781; J0131; J0330; J0690; J1100; J2001; J2405; J2704; J2710; J3010; U0002

== ENCOUNTER 2022-12-01 15:06 | Emergency (ER) | payer MEDICARE ==
[~2022-12-01] VITALS: Ht 365.8 cm; Wt 127.0 kg
[~2022-12-01 15:06] MED LIST changes: -ACETAMINOPHEN 1000 MG/100 ML IV ONE; -BACITRACIN 50,000 UNIT VIAL ONE; -BUPIVACAINE HCL 0.5% INJ 30 ML VIAL INJ ONE; -CEFAZOLIN SOD 1 GM/NS 50ML 100 ML IV ONE; -DEXAMETHASONE SOD PHOS INJ 4 MG/ML VIAL ONE; -ETOMIDATE 2 MG/ML 10 ML INJ IV ONE; -FENTANYL CITRATE/PF 100MCG/2 ML INJ ONE; -GLYCOPYRROLATE INJ 0.2 MG/ML VIAL ONE; -LIDOCAINE HCL 2% LOCAL INJ 5 ML SDV VIAL INJ ONE; -NEOSTIGMINE 1 MG/ML 10ML VIAL ONE; -ONDANSETRON HCL INJ 2MG/ML 2ML 2 MG/ML VIAL ONE; -PROPOFOL IV EMULSION 10 MG/ML 20 ML VIAL ONE; -ROCURONIUM BROMIDE 10 MG/ML 5ML VIAL IV ONE; -SEVOFLURANE INHAL SOLN 250 ML PEN BTL ONE; -SUCCINYLCHOLINE CHLORIDE 20 MG/ML 10ML VIAL ONE
[2022-12-01 16:45] LABS: BASOPHILS % 0.3 % (0.0-1.0); EOSINOPHILS % 0.5 % (0.0-6.0); HEMATOCRIT 40.8 % (38.2-49.6); HEMOGLOBIN 14.1 g/dL (14.0-18.0); LYMPHOCYTES # (AUTO) 0.6 (1.0-3.2); LYMPHOCYTES % 16.5 % (18.0-39.1); MEAN CORPUSCULAR HGB CONC 34.6 g/dL (31-35); MEAN CORPUSCULAR VOLUME 83.8 fL (81-99); MONOCYTES # (AUTO) 0.6 (0.2-0.8); MONOCYTES % 16.8 % (4.4-11.3); NEUTROPHILS # (AUTO) 2.4 (2.1-6.9); NEUTROPHILS % 65.6 % (38.7-80.0); PLATELET COUNT 101 x10e3/uL (140-360); RED BLOOD COUNT 4.87 x10e6/uL (4.3-5.7); RED CELL DISTRIBUTION WIDTH 14.1 % (11.7-14.4); WHITE BLOOD COUNT 3.64 x10e3/uL (4.8-10.8)
[2022-12-01 17:22] LABS: ALBUMIN 2.8 g/dL (3.5-5.0); ALBUMIN/GLOBULIN RATIO 0.8 (0.8-2.0); ANION GAP 12.9 mmol/L (8-16); CALCIUM 8.5 mg/dL (8.4-10.2); CREATININE, SERUM 0.78 mg/dL (0.72-1.25); POTASSIUM 3.9 mmol/L (3.5-5.1)
[2022-12-01] MEDS ORDERED: IOPAMIDOL 610MG/1ML 300 MG/ML VIAL IV ONE (17:32)
[2022-12-01] MEDS ORDERED: IOPAMIDOL 370 MG/ML 100 ML INFUS..BTL INJ ONE (17:33)
[2022-12-01 18:33] VITALS: O2SAT 100
[2022-12-01 21:07] LABS: LYMPHOCYTES % (MANUAL) 27 % (19-48); MONOCYTES % (MANUAL) 11 % (3.4-9.0); NEUTROPHILS % (MANUAL) 62 % (40-74)
[2022-12-01 21:08] LABS: PLATELET ESTIMATE MODERATELY DECREASED; PLATELET MORPHOLOGY COMMENT FEW LARGE; RBC MORPHOLOGY COMMENT NORMAL
== END 2022-12-01 20:03 | disposition home or self-care (01) ==
LOC: ER 16:50
DX: R10.31 Right lower quadrant pain (principal); C61 Malignant neoplasm of prostate; N20.0 Calculus of kidney; R16.0 Hepatomegaly, not elsewhere classified
CPT/HCPCS: 36415; 71045; 74177; 80053; 83690; 85025; 93005; 99283; Q9967

== ENCOUNTER → 2024-05-05 | Outpatient (REF) | payer MEDICARE | LOC: DX 12:17 | PROVIDERS: ATTEND Internal Medicine Infectious Disease | DX: N41.0 Acute prostatitis (principal) | CPT/HCPCS: 36569; 71045 ==

== ENCOUNTER → 2024-05-25 | Day surgery (SDC) | payer MEDICARE ==
[2024-05-24 12:53] LABS: BASOPHILS % 0.7 % (0.0-1.0); EOSINOPHILS # (AUTO) 0.7 (0.0-0.4); EOSINOPHILS % 12.4 % (0.0-6.0); HEMATOCRIT 42.8 % (38.2-49.6); HEMOGLOBIN 13.8 g/dL (14.0-18.0); LYMPHOCYTES # (AUTO) 1.1 (1.0-3.2); LYMPHOCYTES % 19.6 % (18.0-39.1); MEAN CORPUSCULAR HEMOGLOBIN 29.2 pg (28-32); MEAN CORPUSCULAR HGB CONC 32.2 g/dL (31-35); MEAN CORPUSCULAR VOLUME 90.5 fL (81-99); MONOCYTES # (AUTO) 0.4 (0.2-0.8); MONOCYTES % 7.4 % (4.4-11.3); NEUTROPHILS # (AUTO) 3.3 (2.1-6.9); NEUTROPHILS % 59.9 % (38.7-80.0); PLATELET COUNT 155 x10e3/uL (140-360); RED BLOOD COUNT 4.73 x10e6/uL (4.3-5.7); RED CELL DISTRIBUTION WIDTH 13.5 % (11.7-14.4); WHITE BLOOD COUNT 5.55 x10e3/uL (4.8-10.8)
[2024-05-24 13:21] LABS: ALBUMIN 3.5 g/dL (3.5-5.0); ALBUMIN/GLOBULIN RATIO 1.1 (0.8-2.0); ANION GAP 13.8 mmol/L (8-16); BILIRUBIN,TOTAL 0.9 mg/dL (0.2-1.2); CALCIUM 8.5 mg/dL (8.4-10.2); CREATININE, SERUM 0.81 mg/dL (0.72-1.25); POTASSIUM 4.8 mmol/L (3.5-5.1); TOTAL PROTEIN 6.7 g/dL (6.5-8.1); URIC ACID 4.7 mg/dL (4.8-8.0)
[~2024-05-25] MED LIST changes: +ACETAMINOPHEN 1000 MG/100 ML 100 ML IV ONE; +BUPRENORPHINE HC2 MG PO; +DEXAMETHASONE SOD PHOS INJ 4 MG/ML SDV ONE; +FENTANYL CITRATE/PF 100MCG/2 ML INJ ONE; +LIDOCAINE HCL 2% LOCAL INJ 5 ML SDV VIAL INJ ONE; +ONDANSETRON HCL INJ 2MG/ML 2ML 2 MG/ML VIAL ONE; +PROPOFOL IV EMULSION 10 MG/ML 20 ML VIAL ONE; +SEVOFLURANE INHAL SOLN 250 ML PEN BTL ONE
[2024-05-25] MEDS: CEFTRIAXONE 1 GM VIAL ONE (06:23)
[2024-05-25] MEDS: SODIUM CHLORIDE 0.9% 1000ML 1,000 ML ONE (06:23)
[2024-05-25] MEDS: GENTAMICIN 80MG/NS 100 ML 200 ML IV ONE (06:24)
[2024-05-25 09:43] VITALS: TEMP 98.6
[2024-05-25] MEDS: PHENAZOPYRIDINE HCL 100 MG TAB ONE (10:00)
[2024-05-25 10:50] VITALS: BP 155/76; PULSE 56; RESP 16; O2SAT 98
[2024-05-25 11:12] LABS: CALCIUM 8.7 mg/dL (8.6-10.2)
== END | disposition home or self-care (01) ==
LOC: OR 05:46
PROVIDERS: ATTEND Urology
DX: N20.0 Calculus of kidney (principal); N21.0 Calculus in bladder; N35.819 Other urethral stricture, male, unspecified site; N40.1 Benign prostatic hyperplasia with lower urinary tract symptoms; N13.8 Other obstructive and reflux uropathy; R33.8 Other retention of urine; R39.14 Feeling of incomplete bladder emptying; G47.33 Obstructive sleep apnea (adult) (pediatric); E11.9 Type 2 diabetes mellitus without complications; I10 Essential (primary) hypertension; E78.5 Hyperlipidemia, unspecified; G62.9 Polyneuropathy, unspecified; K74.60 Unspecified cirrhosis of liver; Z88.6 Allergy status to analgesic agent; Z88.1 Allergy status to other antibiotic agents; Z88.2 Allergy status to sulfonamides; Z01.812 Encounter for preprocedural laboratory examination; Z01.818 Encounter for other preprocedural examination; Z79.82 Long term (current) use of aspirin; Z79.899 Other long term (current) drug therapy; Z85.46 Personal history of malignant neoplasm of prostate; Z87.891 Personal history of nicotine dependence
CPT/HCPCS: 36415; 50590; 52317; 71046; 74018; 80053; 83970; 84550; 85025; 88300; C1758; J0131; J0696; J1100; J1580; J2003; J2405; J2704; J3010; J7030